=== PATIENT | male | born 1995 | race Caucasian/White ===

== ENCOUNTER 2019-03-07 16:15 | Emergency (ER) | payer MEDICAID, OTHER ==
[~2019-03-07] VITALS: Ht 188 cm; Wt 75.3 kg
[2019-03-07 16:33] VITALS: BP 133/73
== END 2019-03-07 17:42 | disposition home or self-care (01) ==
LOC: ER 16:15
DX: S61.212A Laceration without foreign body of right middle finger without damage to nail, initial encounter (principal); S61.215A Laceration without foreign body of left ring finger without damage to nail, initial encounter; S61.102A Unspecified open wound of left thumb with damage to nail, initial encounter; W26.0XXA Contact with knife, initial encounter; Y93.89 Activity, other specified; Y92.89 Other specified places as the place of occurrence of the external cause; Y99.8 Other external cause status
CPT/HCPCS: 12001; 99284